=== PATIENT | female | born 1970 ===

== ENCOUNTER 2017-07-18 11:22 | Day surgery (SDC) | payer BC ==
[2017-07-17 16:15] VITALS: BMI 33.4
[2017-07-18 12:14] LABS: HEMOGLOBIN 13.3 g/dL (12.0-16.0); MEAN CELL VOLUME 89.5 fl (81.0-99.0); MEAN CORPUSCULAR HEMOGLOBIN 30.2 pg (27.0-31.0); MEAN CORPUSCULAR HGB CONC 33.7 g/dL (33.0-37.0); RBC 4.42 Mil/uL (3.80-5.20); RED CELL DISTRIBUTION WIDTH 13.9 % (11.5-14.5); WHITE BLOOD COUNT 6.5 K/uL (4.8-10.8)
[2017-07-18] MEDS ORDERED: ceFAZolin IV 1 gm in Dextrose 2 GM/100 ML BAG IVPB ONE (13:34)
[2017-07-18] MEDS ORDERED: Bupivacaine 0.5% Inj(30mL) ONE (13:34)
[2017-07-18] MEDS ORDERED: Succinylcholine 200 mg/10 ml Inj IV ONE (17:08)
[2017-07-18] MEDS ORDERED: Midazolam 2 MG/2 ML VIAL ONE (17:08)
[2017-07-18] MEDS ORDERED: Propofol 10 mg/ml Inj (20 ML) ONE (17:08)
[2017-07-18] MEDS ORDERED: Lidocaine 4% (Laryng-O-Jet) Kit MM ONE (17:09)
[2017-07-18] MEDS ORDERED: Dexamethasone 4 mg/1 ml ONE ×2 (17:09→18:27)
[2017-07-18] MEDS ORDERED: Lidocaine 1% 5ml Abboject IV ONE (17:09)
[2017-07-18] MEDS ORDERED: Neostigmine Methylsulfate 2 MG/2 ML ML IV ONE (17:09)
[2017-07-18] MEDS ORDERED: Rocuronium 10 mg/ml (5 ml) ONE (17:12)
[2017-07-18] MEDS ORDERED: Chlorhexidine Gluconate 2OZ GEL TP ONE (17:25)
[2017-07-18] MEDS ORDERED: Lactated Ringer's 1,000 ML IV ONE ×2 (17:35)
[2017-07-18] MEDS ORDERED: Neostigmine Methylsulfate 3mg/3ml Syringe IV ONE (18:47)
[2017-07-18] MEDS ORDERED: HYDROmorphone 0.5 mg/0.5 ml ISec IVP PRN (18:59)
[2017-07-18] MEDS ORDERED: Lactated Ringer's 1,000 ML IV SCH (19:00)
[2017-07-18] MEDS ORDERED: Oxycodone/Acetaminophen 5/325 mg Tab PO PRN (19:11)
[2017-07-18 19:49] VITALS: O2SAT 98
[2017-07-18 21:20] VITALS: RESP 20; TEMP 99.7
[2017-07-18 22:45] VITALS: BP 129/68; PULSE 76
--- NOTE | 2017-08-10 10:07 | OP ---
PROCEDURE DATE: 07/18/2017 SURGEON: Jayesh Leung MD TAPPING MACHINE OPERATOR: Leroy Lee ANESTHESIOLOGIST: eJsus Coats MD ANESTHETIC: General Endo PREOPERATIVE DIAGNOSES: MD PROVIDES POSTOPERATIVE DIAGNOSES: PROVIDES PROCEDURE PERFORMED: Davinci Laparoscopy for Endometriosis, Hysteroscopy, Cystoscopy with Bilateral Ureteral Stenting w/ Dye Injection There is a procedure to be dictated separately by Dr. Jesus Harper COMPLICATIONS: None. SAMPLES: Sent to pathology. DRAINS: Torre catheter. ESTIMATED BLOOD LOSS: Minimal. HISTORY: PROVIDES HISTORY DESCRIPTION OF PROCEDURE: After the consent was obtained, the patient was brought to the operating room and placed on the operating table in the dorsal supine position. An intravenous catheter was started; antibiotics were administered. After satisfactory anesthesia was induced, the patient was then positioned in dorsal lithotomy position, and every area prone to pressure was padded. The external genitalia in the abdomen was sterilely prepped and draped in the standard fashion and a time out was performed. At this point, the cystoscope was introduced in the bladder under direct vision, a parks-cystoscopy was performed and attention was paid to both ureteral orifices, which were in a normal anatomical position. The left ureteral orifice was then catheterized with a [place] open ending ureteral catheter. A solution of indocyanine green of 5 mL was injected into the left ureter and after the ureteral catheter was advanced into the distal ureter. The ureteral catheter was then removed. Attention was paid to the right ureteral orifice and at this point, a urethral catheter was advanced to the level of the right distal ureter. An additional 4 mL of indocyanine green were injected into the right ureter. The ureteral catheter was then removed. The bladder was then inspected and noted to be free of tumors, stones, or bleeding sources. The cystoscope was then removed and a 16 [place] Torre catheter was placed. At this point, attention was turned to the vaginal area, where a speculum was placed in the vagina. The anterior lip of the cervix was grasped. The uterus was dilated and the hysteroscope was inserted in the uterine cavity revealing a normal size cavity with both ureters also being visualized. At this point, the hysteroscope was removed, and a Valtchev uterine manipulator was placed in the uterus, and the attention was turned to the abdomen. An incision was made below the umbilicus with a standard open laparoscopy technique. The abdominal cavity was then entered in a blunt fashion. Under direct visualization, additional trocars were inserted, left upper quadrant, right upper quadrant, and mid quadrant. At this point, the [employer] [place] robot was brought on to the field and it was docked. The findings were followed. There were multiple areas which were slightly erythematous suggestive of endometriosis, mostly in the posterior cervix and the right and the left pelvic side wall. There were adhesions between the sigmoid colon and the descending colon attaching the concerning colon to the left pelvic sidewall impeding the complete vision on the left pelvic side. Dr. Jesus Harper from General Surgery was called in and he took down those adhesions. He will dictate this part separately. At this point, after we were able to see both sides, the ovaries were inspected and appearing to be normal and tubes were also inspected. Attention was on the left-hand side where the fluorescent technology was used to identify the ureter on the left-hand side. The peritoneum overlying the ureter was picked up, it was lifted utilizing a surgical grasper and the retroperitoneal space was entered. The ureter was gently dissected off and the area of peritoneum was sent to pathology, dissected in toto. Similarly, on the right-end side after examined the right ovarian tube, again, the right ureter was identified. The peritoneum overlying the right ureter was elevated. The retroperitoneal space was entered and the wide area of peritoneum was also excised with a partial pelvic sidewall peritonectomy being performed. At this point, we checked with fluorescence for both ureters, they are appeared to be in perfect condition. A peritoneum was also excised from the posterior cervical area. Area suspicious for superficial endometriosis was bipolar coagulated in the posterior cul-de- sac. At this point, it was checked for hemostasis, and appeared to be excellent. The pelvis was irrigated. The ureter appeared to be in excellent condition and intact and undamaged. The bowel was also in perfect condition. At this point, the robot was undocked, the abdomen was desufflated, the instruments were removed. The incisions were closed in layers with 0 PDS for the fascia. The skin was closed with 4-0 Monocryl and a surgical glue. All the instruments were removed from the vagina. The cervix was inspected and appeared to be in excellent condition. Atthis point, the patient was woken up and taken to the recovery room in excellent condition. Jayesh Vidali, MD MTDD
== END 2017-07-18 22:35 | disposition home or self-care (01) ==
LOC: H.OPSURG 11:22 → H.PEDS 21:07 → H.OPSURG 22:35
PROVIDERS: ATTEND Obstetrics & Gynecology Reproductive Endocrinology
DX: N80.0 Endometriosis of uterus (principal); E03.9 Hypothyroidism, unspecified; E66.9 Obesity, unspecified; K21.9 Gastro-esophageal reflux disease without esophagitis; Z87.891 Personal history of nicotine dependence
CPT/HCPCS: 36415; 52332; 64450; 85027; 86850; 86900; C1729; J0330; J0690; J1100; J1885; J2250; J2405; J2704; J2710; J2765; J3010; J7030; J7040; J7120